=== PATIENT | female | born 1960 | race African-American/Black ===

== ENCOUNTER 2019-02-02 15:46 | Inpatient (IN) | payer MEDICARE, MEDICAID ==
[~2019-02-02] VITALS: Ht 160 cm; Wt 101.2 kg
[~2019-02-02 15:46] MED LIST: CHOL200035 PO; FERR-89 PO; HYDR25TA PO; LISI-662 PO
[2019-02-02] MEDS ORDERED: SERT50TA12 PO (16:25)
[2019-02-02] MEDS ORDERED: CLON.5 PO (16:25)
[2019-02-02 16:38] LABS: BASOPHILS % (AUTO) 0.5 % (0.0-2.0); EOSINOPHILS % (AUTO) 0.6 % (1.0-6.0); HEMOGLOBIN 12.3 g/dL (12.0-16.0); LYMPHOCYTES # (AUTO) 1.4 K/uL (1.0-4.8); LYMPHOCYTES % (AUTO) 18.1 % (22.0-44.0); MEAN CORPUSCULAR HEMOGLOBIN 23.4 pg (26.0-34.0); MEAN CORPUSCULAR HGB CONC 31.5 G/dL (31.0-37.0); MEAN CORPUSCULAR VOLUME 74 fL (80-100); MONOCYTES # (AUTO) 0.6 K/uL (0.1-1.0); MONOCYTES % (AUTO) 7.1 % (2.0-9.0); NEUTROPHILS # (AUTO) 5.7 K/uL (1.8-7.7); NEUTROPHILS % (AUTO) 73.7 % (40.0-70.0); PLATELET COUNT (AUTO) 302 K/uL (150-450); RED BLOOD CELL COUNT(AUTO) 5.25 MIL/uL (4.00-5.20); RED CELL DISTRIBUTION WIDTH 16.3 % (11.5-14.5)
[2019-02-02] MEDS ORDERED: HALOPERIDOL LACTATE 5 MG/ML VIAL IM ONE (16:45)
[2019-02-02] MEDS ORDERED: LORazepam 2 MG/ML VIAL IM ONE (16:45)
[2019-02-02 16:51] LABS: ANION GAP 12 mmol/L (8-16); CALCIUM, TOTAL 10.8 mg/dL (8.8-10.5); CARBON DIOXIDE 26 mmol/L (22-29); CHLORIDE 101 mmol/L (98-107); CREATININE 0.95 mg/dL (0.60-1.30); GLOMERULAR FILTR. RATE CALC > 60 mL/min (>60); GLUCOSE,RANDOM 134 mg/dL (70-110); POTASSIUM 3.3 mmol/L (3.5-5.1); SODIUM SERUM 139 mmol/L (136-145); UREA NITROGEN, BLOOD 28 mg/dL (7-18)
[2019-02-02 16:58] LABS: ALANINE AMINOTRANSFERASE 33 U/L (12-78); ALBUMIN 4.6 g/dL (3.4-5.0); ALKALINE PHOSPHATASE 88 U/L (46-116); ASPARTATE AMINOTRANSFERASE 24 U/L (15-37); BILIRUBIN,TOTAL 0.4 mg/dL (0.1-1.0); TOTAL PROTEIN, SERUM 8.2 g/dL (6.4-8.2)
[2019-02-02] MEDS ORDERED: DiphenhydrAMINE HCL 50 MG/ML VIAL IM ONE (17:45)
[2019-02-03] VITALS (8 sets, daily range): BP systolic 112–171; BP diastolic 60–101
[2019-02-03] MEDS ORDERED: DiphenhydrAMINE HCL 25 MG CAPSULE PO ONE (01:00)
[2019-02-03] MEDS ORDERED: ClonazePAM 1 MG TABLET PO ONE (01:00)
[2019-02-03] MEDS ORDERED: SERTRALINE HCL 50 MG TABLET PO ONE (01:00)
[2019-02-03] MEDS: LORazepam 2 MG TABLET PO PRN ×2 (10:50→16:14)
[2019-02-03] MEDS ORDERED: ONDANSETRON HCL 4 MG TABLET PO PRN (11:15)
[2019-02-03] MEDS ORDERED: ALBUTEROL SULFATE HFA 90 MCG/PUFF 8 GM INHALER IH PRN (11:15)
[2019-02-03] MEDS ORDERED: LOPERAMIDE HCL 2 MG CAPSULE PO PRN (11:15)
[2019-02-03] MEDS ORDERED: MAG HYDROX/AL HYDROX/SIMETH ES 30 ML SUSPENSION UDCUP PO PRN (11:15)
[2019-02-03] MEDS ORDERED: PETROLATUM,WHITE 28 GM JELLY TP PRN (11:15)
[2019-02-03] MEDS ORDERED: DOCUSATE SODIUM 100 MG CAPSULE PO PRN (11:15)
[2019-02-03] MEDS ORDERED: GuaiFENesin/D-METHORPHAN [SUGAR-FREE] 200-20MG/10 ML SYRUP UDCUP PO PRN (11:15)
[2019-02-03] MEDS ORDERED: CloNIDine HCL 0.1 MG TABLET PO PRN (11:15)
[2019-02-03] MEDS: MAGNESIUM HYDROXIDE SUSPENSION 30 ML UDCUP PO PRN (11:36)
[2019-02-03] MEDS: SERTRALINE HCL 50 MG TABLET PO SCH (11:37)
[2019-02-03] MEDS ORDERED: POTASSIUM CHLORIDE 20 MEQ ER TABLET PO ONE (12:00)
[2019-02-03] MEDS ORDERED: HYDROCHLOROTHIAZIDE 25 MG TABLET PO ONE (12:00)
[2019-02-03] MEDS ORDERED: LISINOPRIL 20 MG TABLET PO ONE (12:00)
[2019-02-03] MEDS: ARIPiprazole 5 MG TABLET PO SCH (12:34)
[2019-02-03] MEDS: NICOTINE 14 MG/24 HOUR PATCH TD PRN (18:26)
[2019-02-03] MEDS ORDERED: AmLODIPine BESYLATE 5 MG TABLET PO ONE (21:45)
[2019-02-04 01:04] VITALS: BP 128/79
[2019-02-04] MEDS: IBUPROFEN 400 MG TABLET PO PRN (01:27)
[2019-02-04] MEDS: LORazepam 2 MG TABLET PO PRN ×3 (07:10→18:25)
[2019-02-04] MEDS ORDERED: PNEUMOCOCCAL VACCINE POLYVALENT 0.5 ML VIAL [PPSV23] IM ONE (07:30)
[2019-02-04 07:33] LABS: BASOPHILS % (AUTO) 0.5 % (0.0-2.0); EOSINOPHILS % (AUTO) 1.9 % (1.0-6.0); HEMATOCRIT 38.7 % (36-46); HEMOGLOBIN 12.2 g/dL (12.0-16.0); MEAN CORPUSCULAR HEMOGLOBIN 23.4 pg (26.0-34.0); MEAN CORPUSCULAR HGB CONC 31.5 G/dL (31.0-37.0); MEAN CORPUSCULAR VOLUME 75 fL (80-100); MONOCYTES # (AUTO) 0.4 K/uL (0.1-1.0); MONOCYTES % (AUTO) 9.4 % (2.0-9.0); NEUTROPHILS # (AUTO) 2.4 K/uL (1.8-7.7); NEUTROPHILS % (AUTO) 62.2 % (40.0-70.0); PLATELET COUNT (AUTO) 252 K/uL (150-450)
[2019-02-04 08:11] VITALS: BP 111/66
[2019-02-04 08:22] LABS: ALANINE AMINOTRANSFERASE 30 U/L (12-78); ALBUMIN 3.8 g/dL (3.4-5.0); ALKALINE PHOSPHATASE 75 U/L (46-116); ANION GAP 7 mmol/L (8-16); ASPARTATE AMINOTRANSFERASE 25 U/L (15-37); BILIRUBIN,TOTAL 0.4 mg/dL (0.1-1.0); CARBON DIOXIDE 33 mmol/L (22-29); CHLORIDE 102 mmol/L (98-107); CHOL/HDL RATIO 6.1 (3.9-5.7); CHOLESTEROL 282 mg/dL (131-200); CREATININE 0.63 mg/dL (0.60-1.30); GLOMERULAR FILTR. RATE CALC > 60 mL/min (>60); GLUCOSE,RANDOM 108 mg/dL (70-110); HDL CHOLESTEROL 46 mg/dL (40-60); LDL CHOL (CALC.) 204 mg/dL (0-130); POTASSIUM 4.4 mmol/L (3.5-5.1); SODIUM SERUM 142 mmol/L (136-145); THYROID STIMULATING HORMONE 1.88 uIU/mL (0.36-3.74); TOTAL PROTEIN, SERUM 7.2 g/dL (6.4-8.2); TRIGLYCERIDES 160 mg/dL (15-150); UREA NITROGEN, BLOOD 15 mg/dL (7-18)
[2019-02-04] MEDS: ARIPiprazole 5 MG TABLET PO SCH (08:36)
[2019-02-04] MEDS: LOSARTAN POTASSIUM 25 MG TABLET PO SCH (08:36)
[2019-02-04] MEDS: SERTRALINE HCL 50 MG TABLET PO SCH (08:36)
[2019-02-04] MEDS: AmLODIPine BESYLATE 5 MG TABLET PO SCH (08:36)
[2019-02-04] MEDS ORDERED: LISINOPRIL 20 MG TABLET PO SCH (09:00)
[2019-02-04] MEDS ORDERED: HYDROCHLOROTHIAZIDE 25 MG TABLET PO SCH (09:00)
[2019-02-04] MEDS ORDERED: DEXTROSE 50%-WATER 25 GM/50 ML SYRINGE IVP PRN (10:15)
[2019-02-04] MEDS ORDERED: INSULIN LISPRO 100 UNITS/ML SQ PRN (10:15)
[2019-02-04] MEDS ORDERED: HALOPERIDOL 10 MG TABLET PO PRN (10:45)
[2019-02-04 13:29] LABS: GLUCOMETER DEV NAME(LOC) BV2X.; GLUCOSE,POINT OF CARE 154 MG/DL (70-110)
[2019-02-04 16:05] VITALS: BP 140/70
[2019-02-04 20:39] LABS: GLUCOMETER DEV NAME(LOC) BV2X.; GLUCOSE,POINT OF CARE 112 MG/DL (70-110)
[2019-02-04] MEDS: QUEtiapine FUMARATE 100 MG TABLET PO PRN (21:21)
[2019-02-05 00:14] VITALS: BP 146/77
[2019-02-05] MEDS: ZOLPIDEM TARTRATE 10 MG TABLET PO PRN (03:04)
[2019-02-05 06:49] LABS: GLUCOMETER DEV NAME(LOC) BV2X.; GLUCOSE,POINT OF CARE 109 MG/DL (70-110)
[2019-02-05 08:10] VITALS: BP 143/89
[2019-02-05] MEDS: AmLODIPine BESYLATE 5 MG TABLET PO SCH (08:11)
[2019-02-05] MEDS: LOSARTAN POTASSIUM 25 MG TABLET PO SCH (08:11)
[2019-02-05] MEDS: ARIPiprazole 5 MG TABLET PO SCH (08:11)
[2019-02-05] MEDS: SERTRALINE HCL 50 MG TABLET PO SCH (08:11)
[2019-02-05] MEDS: LORazepam 2 MG TABLET PO PRN ×3 (08:11→19:12)
[2019-02-05 13:34] LABS: GLUCOMETER DEV NAME(LOC) BV2X.; GLUCOSE,POINT OF CARE 167 MG/DL (70-110)
[2019-02-05 16:07] VITALS: BP 145/91
[2019-02-05 18:09] LABS: GLUCOMETER DEV NAME(LOC) BV2X.; GLUCOSE,POINT OF CARE 127 MG/DL (70-110)
[2019-02-05] MEDS: QUEtiapine FUMARATE 100 MG TABLET PO PRN (20:30)
[2019-02-05 20:34] LABS: GLUCOMETER DEV NAME(LOC) BV2X.; GLUCOSE,POINT OF CARE 130 MG/DL (70-110)
[2019-02-05] MEDS ORDERED: GLUCAGON,HUMAN RECOMBINANT 1 MG VIAL IM PRN (21:00)
[2019-02-05] MEDS ORDERED: INSULIN LISPRO 100 UNITS/ML SQ PRN (21:00)
[2019-02-06 00:21] VITALS: BP 108/84
[2019-02-06] MEDS: IBUPROFEN 400 MG TABLET PO PRN ×2 (00:21→14:41)
[2019-02-06 05:55] VITALS: BP 125/87
[2019-02-06] MEDS: ACETAMINOPHEN 325 MG TABLET PO PRN (05:55)
[2019-02-06 06:09] LABS: GLUCOMETER DEV NAME(LOC) BV2X.; GLUCOSE,POINT OF CARE 108 MG/DL (70-110)
[2019-02-06] MEDS: LORazepam 2 MG TABLET PO PRN ×2 (06:27→16:12)
[2019-02-06 08:20] VITALS: BP 121/78
[2019-02-06] MEDS: AmLODIPine BESYLATE 5 MG TABLET PO SCH (08:39)
[2019-02-06] MEDS: ARIPiprazole 5 MG TABLET PO SCH (08:39)
[2019-02-06] MEDS: LOSARTAN POTASSIUM 25 MG TABLET PO SCH (08:39)
[2019-02-06] MEDS: SERTRALINE HCL 50 MG TABLET PO SCH (08:39)
[2019-02-06] MEDS: MAGNESIUM HYDROXIDE SUSPENSION 30 ML UDCUP PO PRN (08:56)
[2019-02-06] MEDS: QUEtiapine FUMARATE 100 MG TABLET PO PRN (10:46)
[2019-02-06] MEDS: NICOTINE 14 MG/24 HOUR PATCH TD PRN (10:46)
[2019-02-06 11:04] LABS: GLUCOMETER DEV NAME(LOC) BV2X.; GLUCOSE,POINT OF CARE 97 MG/DL (70-110)
[2019-02-06 14:41] VITALS: BP 125/80
[2019-02-06 16:07] VITALS: BP 121/78
[2019-02-06 16:28] LABS: GLUCOMETER DEV NAME(LOC) BV2X.; GLUCOSE,POINT OF CARE 122 MG/DL (70-110)
[2019-02-06 20:23] LABS: GLUCOMETER DEV NAME(LOC) BV2X.; GLUCOSE,POINT OF CARE 124 MG/DL (70-110)
[2019-02-06] MEDS: ZOLPIDEM TARTRATE 10 MG TABLET PO PRN (20:55)
[2019-02-07] MEDS: QUEtiapine FUMARATE 100 MG TABLET PO PRN ×2 (00:01→09:06)
[2019-02-07] MEDS: IBUPROFEN 400 MG TABLET PO PRN (00:02)
[2019-02-07 00:05] VITALS: BP 132/82
[2019-02-07] MEDS: LORazepam 2 MG TABLET PO PRN ×4 (04:57→20:25)
[2019-02-07 06:19] LABS: GLUCOMETER DEV NAME(LOC) BV2X.; GLUCOSE,POINT OF CARE 98 MG/DL (70-110)
[2019-02-07 08:07] VITALS: BP 113/74
[2019-02-07] MEDS: LOSARTAN POTASSIUM 25 MG TABLET PO SCH (08:40)
[2019-02-07] MEDS: ARIPiprazole 5 MG TABLET PO SCH (08:40)
[2019-02-07] MEDS: SERTRALINE HCL 50 MG TABLET PO SCH (08:40)
[2019-02-07] MEDS: AmLODIPine BESYLATE 5 MG TABLET PO SCH (08:40)
[2019-02-07] MEDS: NICOTINE 14 MG/24 HOUR PATCH TD PRN (08:44)
[2019-02-07 11:29] LABS: GLUCOMETER DEV NAME(LOC) BV2X.; GLUCOSE,POINT OF CARE 121 MG/DL (70-110)
[2019-02-07 16:17] VITALS: BP 123/87
[2019-02-07 16:34] LABS: GLUCOMETER DEV NAME(LOC) BV2X.; GLUCOSE,POINT OF CARE 115 MG/DL (70-110)
[2019-02-07 20:24] LABS: GLUCOMETER DEV NAME(LOC) BV2X.; GLUCOSE,POINT OF CARE 270 MG/DL (70-110)
[2019-02-07] MEDS: ZOLPIDEM TARTRATE 10 MG TABLET PO PRN (22:02)
[2019-02-08] MEDS: IBUPROFEN 400 MG TABLET PO PRN (01:09)
[2019-02-08 04:30] VITALS: BP 121/81
[2019-02-08] MEDS: LORazepam 2 MG TABLET PO PRN (04:51)
[2019-02-08 06:19] LABS: GLUCOMETER DEV NAME(LOC) BV2X.; GLUCOSE,POINT OF CARE 103 MG/DL (70-110)
[2019-02-08 08:16] VITALS: BP 133/86
[2019-02-08] MEDS: ARIPiprazole 5 MG TABLET PO SCH (08:38)
[2019-02-08] MEDS: SERTRALINE HCL 50 MG TABLET PO SCH (08:38)
[2019-02-08] MEDS: LOSARTAN POTASSIUM 25 MG TABLET PO SCH (08:38)
[2019-02-08] MEDS: AmLODIPine BESYLATE 5 MG TABLET PO SCH (08:38)
[2019-02-08] MEDS: ACETAMINOPHEN 325 MG TABLET PO PRN (09:58)
== END 2019-02-08 11:05 | disposition left against medical advice (07) | DRG 885 ==
LOC: EMS 15:47 → B2X 02-03 07:15
PROC: 3E0234Z Introduction of Serum, Toxoid and Vaccine into Muscle, Percutaneous Approach (ICD-10-PCS; principal; 2019-02-04)
DX: F33.3 Major depressive disorder, recurrent, severe with psychotic symptoms (principal); D64.9 Anemia, unspecified; D72.819 Decreased white blood cell count, unspecified; E11.9 Type 2 diabetes mellitus without complications; E55.9 Vitamin D deficiency, unspecified; E78.5 Hyperlipidemia, unspecified; E87.6 Hypokalemia; F43.10 Post-traumatic stress disorder, unspecified; I10 Essential (primary) hypertension; Z79.899 Other long term (current) drug therapy; Z23 Encounter for immunization
CPT/HCPCS: 83036; 84443; 90732; 96372; G0480; J1200; J1630; J2060